=== PATIENT | female | born 1950 | race Hispanic/Latino ===

== ENCOUNTER 2022-04-22 13:20 | Outpatient (CLI) | payer BC | END 2022-04-22 13:21 | disposition home or self-care (01) | LOC: BICRAD 13:20 | PROVIDERS: ATTEND Family Medicine | DX: U07.1 COVID-19 (principal); R53.83 Other fatigue | CPT/HCPCS: 71046 ==

== ENCOUNTER 2022-06-10 12:49 | Outpatient (CLI) | payer BC | END 2022-06-10 12:50 | disposition home or self-care (01) | LOC: BICMAMMO 12:49 | PROVIDERS: ATTEND Family Medicine | DX: Z12.31 Encounter for screening mammogram for malignant neoplasm of breast (principal); M85.80 Other specified disorders of bone density and structure, unspecified site; M81.0 Age-related osteoporosis without current pathological fracture | CPT/HCPCS: 77063; 77067; 77080 ==